=== PATIENT | male | born 1975 | race African-American/Black ===

== ENCOUNTER 2021-08-27 17:17 | Outpatient (CLI) | payer BC, SELFPAY ==
--- NOTE | ~2021-08-27 | CT_ITS ---
EXAMINATION: CTA chest PE protocol DATE: 08/27/2021 17:48 INDICATION: Shortness of breath, heart palpitations TECHNIQUE: Computed tomography angiography (CTA) of the chest was performed with 100 mL Omnipaque-350 intravenous contrast timed to evaluate the pulmonary arteries. Coronal maximum intensity projection 3D-reconstructions were created by the technologist. The dose-length product (DLP) was 716.65 mGy-cm. Automated exposure control and iterative reconstruction technique were employed. COMPARISON: None. FINDINGS: The pulmonary arteries are well-opacified. No pulmonary embolism is identified. There is mi ld atelectasis of the lungs. No focal airspace opacities are identified. There is no pleural effusion or pneumothorax. There is mediastinal and bilateral hilar lymphadenopathy. The heart size is normal. There is mild thoracic spondylosis. IMPRESSION: 1. No pulmonary embolism. 2. Mediastinal and bilateral hilar lymphadenopathy of unclear etiology. Differential includes lymphom a, metastatic disease, or benign causes such as sarcoidosis. Reviewed, dictated and finalized at location F. IMPRESSION: 1. No pulmonary embolism. 2. Mediastinal and bilateral hilar lymphadenopathy of unclear etiology. Differe ntial includes lymphoma, metastatic disease, or benign causes such as sarcoidos is.
== END 2021-08-27 17:18 | disposition home or self-care (01) ==
PROVIDERS: PCP Emergency Medicine; Visit Provider Emergency Medicine
DX: R06.02 Shortness of breath (principal); R42 Dizziness and giddiness; R00.2 Palpitations
CPT/HCPCS: 71275; Q9967